=== PATIENT | female | born 1955 | race Hispanic/Latino ===

== ENCOUNTER 2017-02-24 08:37 | Inpatient (IN) | payer OTHER ==
[2017-02-24 08:45] VITALS: BMI 22.1
[2017-02-24] MEDS ORDERED: Sodium Chloride 0.9% 1,000 ML IV ONE (09:09)
[2017-02-24] MEDS ORDERED: Vancomycin 1gm in NS 250ml 1 GM/250 ML BAG IVPB STA (09:22)
[2017-02-24] MEDS ORDERED: Cefepime IV 2 gm in NS 2 GM/100 ML BAG IVPB STA (09:22)
[2017-02-24 09:35] LABS: VENOUS BLOOD GAS BASE EXCESS -3.1 mmol/L (0.0-2.0); VENOUS BLOOD PH 7.36 (7.32-7.43)
[2017-02-24 09:37] LABS: HEMATOCRIT 34.3 % (36.0-48.0); MEAN CELL VOLUME 88.9 fL (80.0-105.0); MEAN CORPUSCULAR HEMOGLOBIN 32.4 pg (25.0-35.0); MEAN CORPUSCULAR HGB CONC 36.4 g/dl (31.0-37.0); MEAN PLATELET VOLUME 9.7 fl (7.0-11.0); PLATELET COUNT 69 10^3/uL (120.0-450.0); RED CELL DISTRIBUTION WIDTH 13.7 % (11.5-14.5)
[2017-02-24 09:38] LABS: ADD MANUAL DIFF? YES; WHITE BLOOD COUNT 0.2 10^3/ul (4.5-11.0)
[2017-02-24 09:41] LABS: INR 1.18 (0.93-1.08)
[2017-02-24 09:50] LABS: ALKALINE PHOSPHATASE 143 U/L (38-133); ALT/SGPT 47 U/L (7-56); AST/SGOT 28 U/L (15-39); BILIRUBIN,TOTAL 1.9 mg/dL (0.2-1.3); BLOOD UREA NITROGEN 16 mg/dL (7-21); CALCIUM 9.4 mg/dL (8.4-10.5); CARBON DIOXIDE 21 mmol/L (21-33); CHLORIDE 99 mmol/L (98-107); GFR AFRICAN-AMERICAN > 60; GLUCOSE,RANDOM 139 mg/dL (70-110); MAGNESIUM 1.9 mg/dL (1.7-2.2); PHOSPHOROUS 3.6 mg/dL (2.5-4.5); POTASSIUM 3.9 mmol/L (3.6-5.0); SODIUM 131 mmol/L (132-148); TOTAL PROTEIN 7.5 g/dL (5.8-8.3)
[2017-02-24] MEDS: Levalbuterol 0.63 MG/3 ML Inhal Soln UD IH SCH ×4 (09:52→21:00)
[2017-02-24] MEDS ORDERED: Sodium Chloride 0.9% 1,000 ML IV STA ×2 (09:56→11:12)
[2017-02-24 10:07] LABS: ATYPICAL LYMPHOCYTE 2 % (0.0-0.0); METAMYELOCYTE 2 %; MYELOCYTE 8 %; NEUTROPHIL 18 % (50.0-70.0)
--- NOTE | 2017-02-24 10:10 | ED PDOC ---
Arrival/HPI - General Chief Complaint: Shortness Of Breath Time Seen by Provider: 02/24/17 08:47 Historian: Patient - History of Present Illness Narrative History of Present Illness (Text): 02/24/17 09:00 A 61 year old female, whose past medical history includes non hodgkin's lymphoma (last chemo in 2006) and hypertension, presents to the emergency department for further evaluation of pneumonia. Patient was diagnosed with right lower lobe pneumonia [place]. She notes coughing associated with shortness of breath and sinus congestion. Patient was give ceftriaxone, hydrocortisone and duoneb treatment in the ship. Patient denies any fever, chest pain, or other complaints at this time. Time/Duration: Other (3 days) Symptom Onset: Sudden Symptom Course: Unchanged Quality: Other Activities at Onset: Rest Context: Other Past Medical History - Provider Review Nursing Documentation Reviewed: Yes - Travel History If Yes, travel location?: [place] - Cardiac Hx Cardiac Disorders: Yes Hx Hypertension: Yes - Pulmonary Hx Respiratory Disorders: No - Neurological Hx Neurological Disorder: No - HEENT Hx HEENT Disorder: No - Renal Hx Renal Disorder: No - Endocrine/Metabolic Hx Endocrine Disorders: No - Hematological/Oncological Hx Blood Disorders: Yes Hx Cancer: Yes (non-hodgkins lymphoma) Hx Chemotherapy: Yes - Integumentary Hx Dermatological Disorder: No - Musculoskeletal/Rheumatological Hx Musculoskeletal Disorders: No - Gastrointestinal Hx Gastrointestinal Disorders: No - Genitourinary/Gynecological Hx Genitourinary Disorders: No - Psychiatric Hx Psychophysiologic Disorder: No Hx Substance Use: No Family/Social History - Physician Review Nursing Documentation Reviewed: Yes Family/Social History: Unknown Family HX Smoking Status: Heavy Smoker > 10 Cigarettes Daily Hx Alcohol Use: Yes Frequency of alcohol use: Socially Hx Substance Use: No Allergies/Home Meds Allergies/Adverse Reactions: Allergies VIKA Inhibitors Allergy (Verified 02/24/17 08:46) COUGH clindamycin Allergy (Verified 02/24/17 08:46) URTICARIA Ptigkst-Lza-Jjl Reductase Inhibitor Adverse Reaction (Verified 02/24/17 08:46) .elevated LFT iv contrast Allergy (Uncoded 02/24/17 08:46) ANAPHYLAXIS Home Medications: Home Meds Medication Instructions Recorded Confirmed Acyclovir [Zovirax] 800 mg PO BID 02/24/17 02/24/17 Cyclobenzaprine [Flexeril] 10 mg PO BID PRN 02/24/17 02/24/17 Estrogen,Con/M-Progest Acet 1 tab PO DAILY 02/24/17 02/24/17 [Prempro 0.625-2.5 mg Tablet] Guaifenesin [Mucinex] 1,200 mg PO DAILY 02/24/17 02/24/17 Ibuprofen [Motrin Tab] 800 mg PO DAILY PRN 02/24/17 02/24/17 L.acidoph,Paracasei, B.lactis 2 cap PO DAILY 02/24/17 02/24/17 [Probiotic] Losartan [Cozaar] 100 mg PO DAILY 02/24/17 02/24/17 Nystatin [Nystatin Oral Susp] 5 ml PO Q4 02/24/17 02/24/17 Ondansetron HCl [Zofran] 8 mg PO Q8 PRN 02/24/17 02/24/17 Promethazine [Phenergan Rectal 12.5 mg PO Q6 PRN 02/24/17 02/24/17 Supp] amLODIPine [Norvasc] 5 mg PO DAILY 02/24/17 02/24/17 Review of Systems - Physician Review All systems were reviewed & negative as marked: Yes - Review of Systems Constitutional: absent: Fevers ENT: Sinus Congestion Respiratory: SOB Cardiovascular: absent: Chest Pain Physical Exam Vital Signs Reviewed: Yes Vital Signs Temp Pulse Resp BP Pulse Ox 02/24/17 12:28 99.9 F H 122 H 22 144/77 02/24/17 11:52 99.9 F H 122 H 22 144/77 95 02/24/17 10:39 98.6 F 122 H 20 149/82 96 02/24/17 09:53 117 H 137/85 02/24/17 09:09 129 H 18 149/82 92 L 02/24/17 08:44 98.8 F 128 H 22 137/85 91 L 02/24/17 08:40 22 95 Temperature: Afebrile Blood Pressure: Normal Pulse: Tachycardic Respiratory Rate: Normal Appearance: Positive for: Well-Appearing, Non-Toxic, Comfortable Pain Distress: None Mental Status: Positive for: Alert and Oriented X 3 - Systems Exam Head: Present: Atraumatic, Normocephalic Pupils: Present: PERRL Extroacular Muscles: Present: EOMI Conjunctiva: Present: Normal Mouth: Present: Dry Neck: Present: Normal Range of Motion Respiratory/Chest: Present: Good Air Exchange, Decreased Breath Sounds (right lower lung ), Rhonchi (right lower lung). No: Respiratory Distress, Accessory Muscle Use Cardiovascular: Present: Normal S1, S2, Tachycardic. No: Murmurs Abdomen: Present: Normal Bowel Sounds. No: Tenderness, Distention, Peritoneal Signs Back: Present: Normal Inspection Upper Extremity: Present: Normal Inspection. No: Cyanosis, Edema Lower Extremity: Present: Normal Inspection. No: Edema Neurological: Present: GCS=15, CN II-XII Intact, Speech Normal Skin: Present: Warm, Dry, Normal Color. No: Rashes Psychiatric: Present: Alert, Oriented x 3, Normal Insight, Normal Concentration Medical Decision Making ED Course and Treatment: 02/24/17 09:00 Impression: A 61 year old female with cough and congestion. Differential Diagnosis include but are not limited to: Pneumonia vs. Neutropenia Plan: -- EKG -- Chest X-ray -- Labs -- Urinalysis -- Reassess and disposition Progress Notes: EKG: Ordered, reviewed, and independently interpreted the EKG. Rate : 128 BPM Rhythm : Sinus tachycardia Interpretation : No ST-segment elevations or depressions, no T-wave inversions, normal intervals. Comparison : No previous EKG for comparison. 02/24/17 09:[address] Matt, who is aware and accepts the patient to his services for Pneumonia. Patient was admitted to telemetry by me. Patient will be placed in an isolation bed. I have discussed the results and plan with the patient, who expresses understanding. Patient given the opportunity to ask question, all questions were answered and there is agreement with the plan to be admitted to the hospital. 02/24/17 09:38 Code Sepsis called. 02/24/17 10:12 Case was discussed with Dr. Alejandro who states to add pulmicort 0.5 q12h x 2 doses and he will follow. Case discussed with Dr. aMnn who agrees with dose of Rocephin 2gm given on ship and added Vancomycin IV. He does recommend that at 5pm we add Zosyn IV. 02/24/17 11:42 Chest X-ray: Creator : Bernardo Bhandari MD COMPARISON: No prior. FINDINGS: LUNGS: Right lower lobe infiltrate. PLEURA: Right pleural effusion. CARDIOVASCULAR: Normal. OSSEOUS STRUCTURES: No significant abnormalities. VISUALIZED UPPER ABDOMEN: Normal. OTHER FINDINGS: None. IMPRESSION: Right lower lobe infiltrate and pleural effusion. - Critical Care Critical Care Minutes: 30 minutes - Lab Interpretations Lab Results: 02/24/17 09:26 02/24/17 09:26 Lab Results 02/24/17 09:26: Chloride 99, Sodium 131 L, Potassium 3.9, Carbon Dioxide 21, Anion Gap 15, BUN 16, Creatinine 1.0, Est GFR ( Amer) > 60, Est GFR (Non- Af Amer) 56, Random Glucose 139 H, Calcium 9.4, Phosphorus 3.6, Magnesium 1.9, Total Bilirubin 1.9 H, AST 28, ALT 47, Alkaline Phosphatase 143 H, Total Protein 7.5, Albumin 3.8, Globulin 3.7, Albumin/Globulin Ratio 1.0 L 02/24/17 09:26: pO2 29 L, VBG pH 7.36, VBG pCO2 39.0 L, VBG HCO3 22.0, VBG Total CO2 23.2, VBG O2 Sat (Calc) 56.6, VBG Base Excess -3.1 L, Chloride 99.0, Glucose 145 H, Lactate 3.8 H, FiO2 21.0 02/24/17 09:26: PT 12.7 H, INR 1.18 H, APTT 38.0 H 02/24/17 09:26: WBC 0.2 L*, RBC 3.86, Hgb 12.5, Hct 34.3 L, MCV 88.9, MCH 32.4, MCHC 36.4, RDW 13.7, Plt Count 69 L, MPV 9.7, Neutrophils % (Manual) 18 L, Lymphocytes % (Manual) 54 H, Atypical Lymphs % 2 H, Monocytes % (Manual) 16 H, Metamyelocytes % 2, Myelocytes % 8 I have reviewed the lab results: Yes - RAD Interpretation Radiology Orders: 02/24/17 09:09 CHEST PORTABLE [RAD] Stat - Medication Orders Current Medication Orders: Acyclovir (Zovirax) 800 mg PO BID AC PRN Reason: Protocol Last Admin: 02/24/17 10:19 Dose: 800 mg Amlodipine Besylate (Norvasc) 5 mg PO DAILY [facility] Last Admin: 02/24/17 09:53 Dose: 5 mg Arformoterol Tartrate (Brovana) 15 mcg IH [id number] [facility] Budesonide (Pulmicort Respules) 0.5 mg IH Q12H [facility] Last Admin: 02/24/17 11:34 Dose: 0.5 mg Sodium Chloride (Sodium Chloride 0.45%) 1,000 mls @ 40 mls/hr IV .Q24H AC Meropenem 1g/NS 100mL IVPB (Meropenem 1g/Ns 100ml Ivpb) 1 gm in 100 mls @ 100 mls/hr IVPB Q8 AC PRN Reason: Protocol Stop: 03/03/17 10:33 Doxycycline Hyclate 100 mg/ (Sodium Chloride) 100 mls @ 100 mls/hr IVPB Q12 AC PRN Reason: Protocol Last Admin: 02/24/17 11:25 Dose: 100 mls/hr Levalbuterol HCl (Xopenex) 0.63 mg IH [id number] [facility] Last Admin: 02/24/17 12:06 Dose: 0.63 mg Losartan Potassium (Cozaar) 100 mg PO DAILY [facility] Last Admin: 02/24/17 09:53 Dose: 100 mg Prempro 0.625-2.5 Mg (Tablet (Home Med)) 1 tab PO DAILY [facility] Last Admin: 02/24/17 10:22 Dose: 1 tab Comments: Pt will take her won at night, usual administration time Promethazine HCl (Phenergan Syrup) 6.25 mg PO Q4H PRN PRN Reason: Cough Discontinued Medications Acetaminophen (Tylenol 325mg Tab) Confirm Administered Dose 650 mg .ROUTE .STK- MED ONE Stop: 02/24/17 12:05 Last Admin: 02/24/17 12:07 Dose: 650 mg Sodium Chloride (Sodium Chloride 0.9%) 1,000 mls @ 2,000 mls/hr IV .Q30M ONE Stop: 02/24/17 09:38 Last Admin: 02/24/17 09:50 Dose: 2,000 mls/hr Cefepime HCl (Maxipime 2gm) 2 gm in 100 mls @ 100 mls/hr IVPB STAT STA PRN Reason: Protocol Stop: 02/24/17 10:21 Last Admin: 02/24/17 12:00 Dose: Vancomycin HCl (Vancomycin 1gm) 1 gm in 250 mls @ 167 mls/hr IVPB STAT STA PRN Reason: Protocol Stop: 02/24/17 10:51 Last Admin: 02/24/17 09:49 Dose: 167 mls/hr Sodium Chloride (Sodium Chloride 0.9%) 1,000 mls @ 999 mls/hr IV .Q1H1M STA Stop: 02/24/17 10:56 Last Admin: 02/24/17 12:14 Dose: 999 mls/hr Sodium Chloride (Sodium Chloride 0.9%) 1,000 mls @ 999 mls/hr IV .Q1H1M STA Stop: 02/24/17 12:12 Levalbuterol HCl (Xopenex) Confirm Administered Dose 1.25 mg .ROUTE .STK-MED ONE Stop: 02/24/17 12:05 Last Admin: 02/24/17 12:07 Dose: - Scribe Statement The provider has reviewed the documentation as recorded by the Ryanibisrael Martin Provider Scribe Attestation: All medical record entries made by the Kane were at my direction and personally dictated by me. I have reviewed the chart and agree that the record accurately reflects my personal performance of the history, physical exam, medical decision making, and the department course for this patient. I have also personally directed, reviewed, and agree with the discharge instructions and disposition. Disposition/Present on Arrival - Present on Arrival Any Indicators Present on Arrival: No History of DVT/PE: No History of Uncontrolled Diabetes: No Urinary Catheter: No History of Decub. Ulcer: No History Surgical Site Infection Following: None - Disposition Have Diagnosis and Disposition been Completed?: Yes Diagnosis: Pneumonia, Neutropenia Disposition Time: 10:12 Patient Plan: Admission Patient Problems: Current Active Problems Problem Status Onset Neutropenia Acute Pneumonia Acute Condition: GUARDED
[2017-02-24] MEDS: PREMPRO PO SCH (10:22)
[2017-02-24 11:22] LABS: URINE BILIRUBIN NEGATIVE (NEGATIVE); URINE BLOOD SMALL (NEGATIVE); URINE GLUCOSE (UA) NEGATIVE (NEGATIVE); URINE KETONE NEGATIVE (NEGATIVE); URINE LEUKOCYTE ESTERASE NEGATIVE Leu/uL (NEGATIVE); URINE PROTEIN 30 mg/dL (<30 mg/dL)
[2017-02-24 11:24] LABS: URINE APPEARANCE CLEAR (CLEAR); URINE COLOR YELLOW (YELLOW)
[2017-02-24 11:34] LABS: URINE BACTERIA SMALL (NEG); URINE RBC 0 - 2 /hpf (0-2); URINE WBC 0 - 2 /hpf (0-6)
[2017-02-24] MEDS: Budesonide 0.5 mg/2 ml Inhal Susp UD IH SCH (11:34)
--- NOTE | 2017-02-24 11:41 | RAD ---
HISTORY: Sepsis Patient COMPARISON: No prior. FINDINGS: LUNGS: Right lower lobe infiltrate. PLEURA: Right pleural effusion. CARDIOVASCULAR: Normal. OSSEOUS STRUCTURES: No significant abnormalities. VISUALIZED UPPER ABDOMEN: Normal. OTHER FINDINGS: None. IMPRESSION: Right lower lobe infiltrate and pleural effusion.
[2017-02-24] MEDS ORDERED: Levalbuterol 1.25 MG/3 ML Inhal Soln UD ONE (12:04)
--- NOTE | 2017-02-24 12:39 | HP ---
I was called down to the Emergency Room by the Emergency Room doctor for evaluation. She came off th e cruise ship, [employer], after being diagnosed with a pneumonia on the cruise ship and she is here v jesus short of breath, coughing, congestion. She is a 61-year-old female who had 3 days of shortness o f breath on the cruise ship, coughing, went to the hospital on the cruise ship. They found her to [place] ve a pneumonia, right lower lobe. There is an old septal infarct. Troponin and D-dimer were negativ e. She was given ceftriaxone 2 grams IV, hydrocortisone 250 IV, nebulizer started and she is very sh ort of breath and not feeling well here. PAST MEDICAL HISTORY: Non-Hodgkin lymphoma. Last chemo was 10/2016. MEDICATIONS: She has numerous. She takes Cozaar for hypertension, estrogen for menopause, Norvasc f or hypertension. She was given cough medicine. She gets ibuprofen for pain, acyclovir for herpes. She is seen on the [facility] in bed 3 in the Emergency Room, not feeling well at all, very short of megan th, coughing. She is on oxygen. I will put her on breathing treatments. I will call in infectious disease for IV antibiotics and pulmonary because she is ALLERGIC TO VIKA INHIBITORS, CLINDAMYCIN, SATI NS, IV CONTRAST, NUMEROUS OTHER MEDICATIONS. REVIEW OF SYSTEMS: No acute vision or hearing changes. There is a sore throat. Neck is supple. Eben wood gets mild headaches from time to time. No chest pain, but there is severe shortness of breath and coughing. She cannot take a deep breath. No nausea, vomiting, constipation, diarrhea. Extremities, she is weak. No edema. She can walk with help, but she is very weak. PHYSICAL EXAMINATION: VITAL SIGNS: She has a 98.8 temp, 128 pulse, 137/85 blood pressure, 22 respiratory rate, 91% O2 sat on room air. She will be given oxygen. We will give her Xopenex and albuterol due to the elevated p ulse rate. HEENT: Head is atraumatic, normocephalic. Extraocular muscles are intact. Pupils equally reactive to light. Mouth is dry. NECK: Supple. HEART: Irregular rate, very tachy at this time. LUNGS: Decreased breath sounds bilaterally, cannot take a deep breath in, very hard to do so. When she does, she coughs. Decreased breath sounds bilaterally, occasional wheeze and rhonchi. ABDOMEN: Soft, nontender, positive bowel sounds. EXTREMITIES: No edema. NEUROLOGIC: Alert and oriented x 3. Cranial nerves II-XII grossly intact. GCS is 15. SKIN: Warm and dry, no ulcers. LYMPHATIC: Thyroid midline. No palpable lymphadenopathy. Laboratory is pending. X-ray is pending. LABORATORIES: From the cruise ship shows a 108 glucose, BUN 19, creatinine 1.1, urate is 1.9, calciu m is 8, albumin 2.7, protein 5.6. Liver enzymes are 40, 129 and 131 alk phos, GGT is 80, amylase is 15. C-reactive protein is 191, it is very high. She is uncomfortable. She has pneumonia from the cruise ship, showing a right lower lobe pneumonia, old septal infarct, history of non-Hodgkin lymphoma. We will be aggressive with her care, IV antibio tics and she will be admitted to the hospital. Miguel Matt DO cc: [id number] TT: 02/24/2017 12:38:51 en
[2017-02-24 12:51] LABS: VENOUS BLOOD GAS BASE EXCESS -5.1 mmol/L (0.0-2.0); VENOUS BLOOD PH 7.35 (7.32-7.43)
[2017-02-24] MEDS: Meropenem 1g/NS 100mL IVPB 1 GM/100 ML PIGGYBACK IVPB SCH ×2 (15:03→21:47)
[2017-02-24] MEDS: Sodium Chloride 0.45% 1,000 ML IV SCH (15:03)
--- NOTE | 2017-02-24 15:24 | CP.PCM.CON ---
History of Present Illness - History of Present Illness History of Present Illness: 61 year old male with PMH of non-Hodgkin Lymphoma (last treatment in 2016) , HTN was brought in to [facility] from a cruise ship because of shortness of breath with cough productive of whitish phlegm. His symptoms started about 3 days ago, and initially it was rhinorrhea, then proceeded to cough. The patient denies fever or chills, no nausea or vomiting, no chest pain , has headache associated with coughing, no dizziness, no abdominal pain, no diarrhea, no dysuria, no hematuria. The cruise that he was on went to [facility]. He denies animal contacts, no insect bites. On the cruise ship, the patient was given Ceftriaxone and hydrocortisone. In the ED, CXR reveals right lower lobe infiltrate and severe neutropenia. Infectious Diseases consult is requested to further evaluate and manage. Review of Systems - Review of Systems All systems: reviewed and no additional remarkable complaints except (as per HPI ) Past Patient History - Past Social History Smoking Status: Heavy Smoker > 10 Cigarettes Daily - CARDIAC Hx Cardiac Disorders: Yes Hx Hypertension: Yes - PULMONARY Hx Respiratory Disorders: No - NEUROLOGICAL Hx Neurological Disorder: No - HEENT Hx HEENT Problems: No - RENAL Hx Chronic Kidney Disease: No - ENDOCRINE/METABOLIC Hx Endocrine Disorders: No - HEMATOLOGICAL/ONCOLOGICAL Hx Blood Disorders: Yes Hx Cancer: Yes (non-hodgkins lymphoma) Hx Chemotherapy: Yes - INTEGUMENTARY Hx Dermatological Problems: No - MUSCULOSKELETAL/RHEUMATOLOGICAL Hx Musculoskeletal Disorders: No - GASTROINTESTINAL Hx Gastrointestinal Disorders: No - GENITOURINARY/GYNECOLOGICAL Hx Genitourinary Disorders: No - PSYCHIATRIC Hx Psychophysiologic Disorder: No Hx Substance Use: No - SURGICAL HISTORY Hx Surgeries: Yes (nasal) Meds Allergies/Adverse Reactions: Allergies Allergy/AdvReac Type Severity Reaction Status Date / Time VIKA Inhibitors Allergy COUGH Verified 02/24/17 08:46 clindamycin Allergy URTICARIA Verified 02/24/17 08:46 Pfanhmz-Nmr-Coc Reductase AdvReac .elevated Verified 02/24/17 08:46 Inhibitor LFT iv contrast Allergy ANAPHYLAXIS Uncoded 02/24/17 08:46 - Medications Medications: Current Medications Acyclovir (Zovirax) 800 mg PO BID AC PRN Reason: Protocol Last Admin: 02/24/17 10:19 Dose: 800 mg Amlodipine Besylate (Norvasc) 5 mg PO DAILY [facility] Last Admin: 02/24/17 09:53 Dose: 5 mg Cefepime HCl (Maxipime 2gm) 2 gm in 100 mls @ 100 mls/hr IVPB Q12 AC PRN Reason: Protocol Stop: 03/01/17 22:01 Vancomycin HCl (Vancomycin 1gm) 1 gm in 250 mls @ 167 mls/hr IVPB STAT STA PRN Reason: Protocol Stop: 02/24/17 10:51 Last Admin: 02/24/17 09:49 Dose: 167 mls/hr Sodium Chloride (Sodium Chloride 0.45%) 1,000 mls @ 40 mls/hr IV .Q24H AC Sodium Chloride (Sodium Chloride 0.9%) 1,000 mls @ 999 mls/hr IV .Q1H1M STA Stop: 02/24/17 10:56 Levalbuterol HCl (Xopenex) 0.63 mg IH [id number] [facility] Last Admin: 02/24/17 09:52 Dose: 0.63 mg Losartan Potassium (Cozaar) 100 mg PO DAILY [facility] Last Admin: 02/24/17 09:53 Dose: 100 mg Prempro 0.625-2.5 Mg (Tablet (Home Med)) 1 tab PO DAILY [facility] Last Admin: 02/24/17 10:22 Dose: 1 tab Promethazine HCl (Phenergan Syrup) 6.25 mg PO Q4H PRN PRN Reason: Cough Physical Exam - Constitutional Appears: Non-toxic, No Acute Distress - Head Exam Head Exam: NORMAL INSPECTION - ENT Exam ENT Exam: Mucous Membranes Moist - Neck Exam Neck exam: Negative for: Lymphadenopathy, Meningismus - Respiratory Exam Respiratory Exam: Decreased Breath Sounds (at the bases) - Cardiovascular Exam Cardiovascular Exam: +S1, +S2 - GI/Abdominal Exam GI & Abdominal Exam: Soft. absent: Tenderness Results - Vital Signs Recent Vital Signs: Last Vital Signs Temp 98.8 F 02/24/17 08:44 Pulse 117 H 02/24/17 09:53 Resp 22 02/24/17 08:44 BP 137/85 02/24/17 09:53 Pulse Ox 91 L 02/24/17 08:44 - Labs Result Diagrams: 02/24/17 09:26 02/24/17 09:26 Assessment & Plan - Assessment and Plan (Free Text) Plan: Assessment Severe sepsis with acute renal failure (GFR 56) and acute neutropenia due to severe right lower lobe community-acquired pneumonia PMH of non-Hodgkin Lymphoma (last treatment in 2016) HTN Plan Patient has been given a dose of IV Vancomycin and we have started the patient on Meropenem and Doxycycline pending blood, sputum cx, urine Legionella Ag, PCT ; reviewed CXR which shows the right lower lobe infiltrate Will monitor clinical response and trend WBC count
[2017-02-24] MEDS: Promethazine 6.25 MG/5 ML CUP PO PRN (16:04)
--- NOTE | 2017-02-24 18:49 | CARD ---
APPROVED REPORT EKG Measurement Heart [id number] <Conclusion> Sinus tachycardia Septal infarct, age undetermined Abnormal ECG
[2017-02-24] MEDS: Arformoterol 15 mcg/2 ml Inh Sol IH SCH (21:00)
[2017-02-24] MEDS ORDERED: Cefepime IV 2 gm in NS 2 GM/100 ML BAG IVPB SCH (22:00)
[2017-02-25] MEDS: Levalbuterol 0.63 MG/3 ML Inhal Soln UD IH SCH ×6 (00:43→19:33)
[2017-02-25] MEDS: Budesonide 0.5 mg/2 ml Inhal Susp UD IH SCH ×3 (00:44→19:35)
[2017-02-25] MEDS: Meropenem 1g/NS 100mL IVPB 1 GM/100 ML PIGGYBACK IVPB SCH ×3 (05:36→21:46)
[2017-02-25 07:36] LABS: HEMATOCRIT 30.4 % (36.0-48.0); MEAN CELL VOLUME 88.6 fL (80.0-105.0); MEAN CORPUSCULAR HEMOGLOBIN 32.4 pg (25.0-35.0); MEAN CORPUSCULAR HGB CONC 36.5 g/dl (31.0-37.0); PLATELET COUNT 58 10^3/uL (120.0-450.0); RED CELL DISTRIBUTION WIDTH 13.7 % (11.5-14.5)
[2017-02-25 07:44] LABS: ALB/GLOB RATIO 0.9 (1.1-1.8); ALKALINE PHOSPHATASE 121 U/L (38-133); ALT/SGPT 39 U/L (7-56); AST/SGOT 17 U/L (15-39); BILIRUBIN,TOTAL 1.3 mg/dL (0.2-1.3); BLOOD UREA NITROGEN 19 mg/dL (7-21); CALCIUM 8.9 mg/dL (8.4-10.5); CARBON DIOXIDE 20 mmol/L (21-33); CHLORIDE 109 mmol/L (95-110); GFR AFRICAN-AMERICAN > 60; GLUCOSE,RANDOM 88 mg/dL (70-110); POTASSIUM 3.3 mmol/L (3.6-5.0); SODIUM 137 mmol/L (132-148); TOTAL PROTEIN 6.6 g/dL (5.8-8.3); URIC ACID 2.9 mg/dL (2.5-6.2)
[2017-02-25 07:53] LABS: ADD MANUAL DIFF? NO; EOS % 1.8 % (1.5-5.0); GRAN % 49.1 % (50.0-68.0); MONO % 29.1 % (1.0-6.0)
[2017-02-25 07:54] LABS: GRAN # 0.27 (1.4-6.5); LYMPH # 0.1 (1.2-3.4); MONO # 0.2 (0.1-0.6)
[2017-02-25 07:55] LABS: WHITE BLOOD COUNT 0.6 10^3/ul (4.5-11.0)
[2017-02-25] MEDS: Potassium Chloride 20 mEq ER Tab PO SCH (08:30)
--- NOTE | 2017-02-25 08:54 | PN ---
DATE: 02/25/2017 I saw the patient in her room. Her partner is in the next bed in reverse isolation. She is breathin g poorly, coughing, cannot take a deep breath, a little weak when she walks. She is on Brovana, Cozaar, doxycycline IV, Merrem IV, Norvasc, Phenergan, Prempro, Pulmicort, IV flui ds, IV Solu-Medrol, Xopenex, and Zovirax. PHYSICAL EXAMINATION: VITAL SIGNS: She has a 99.2 temp, 104 pulse, 131/94 blood pressure, 20 respiratory rate, 94% O2 sat on room air. HEAD: Atraumatic, normocephalic. HEART: Regular rate. LUNGS: Decreased breath sounds, congestion bilaterally, right more than left. ABDOMEN: Soft. EXTREMITIES: No edema. LABORATORY DATA: She has a 0.6 white count; it was low at 0.2. Hemoglobin is 11.1, hematocrit 30.4. Platelets are 58 - quite low. INR is 1.18. She has a 137 sodium. Potassium is low at 3.3. I carmina l replace the potassium. BUN 19, creatinine 1. GFR is greater than 60. Sugar is 88. Calcium is 8. 9. Uric acid is 2.9. Total bili is 1.3. AST is 17. ALT is 39, alk phos 121, total protein 6.6. P rocalcitonin is high at 4.67. Urine is clean. She is being seen by ID, pulmonary. They added steroids IV. I am going to replace the potassium. S he has got a few issues going on. She has pneumonia, sepsis, neutropenia, non-Hodgkin's lymphoma and hypertension. We will keep a very close eye on her. We will check her labs tomorrow. Continue aggressive treatmen t and care. I will replace the potassium and watch her blood pressure. Miguel Matt DO cc: [id number] TT: 02/25/2017 08:54:41 Confirmation # [id number] Dictation # [id number] luis
[2017-02-25] MEDS: Arformoterol 15 mcg/2 ml Inh Sol IH SCH ×2 (09:26→19:33)
[2017-02-25] MEDS: Sodium Chloride 0.45% 1,000 ML IV SCH (09:30)
--- NOTE | 2017-02-25 09:34 | CP.PCM.PN ---
Subjective - Date & Time of Evaluation Date of Evaluation: 02/25/17 Time of Evaluation: 08:30 - Subjective Subjective: Patient is comfortable in bed but still having dyspnea on exertion, had low grade temperature overnight, still with productive cough. Objective - Vital Signs/Intake and Output Vital Signs (last 24 hours): Temp Pulse Resp BP Pulse Ox 99.0 F 99 H 20 122/83 92 L 02/24/17 17:32 02/25/17 05:51 02/24/17 17:32 02/24/17 17:32 02/24/17 17:32 Intake and Output: 02/25/17 02/25/17 06:59 18:59 Intake Total 640 Output Total 400 Balance 240 - Medications Medications: Current Medications Acyclovir (Zovirax) 800 mg PO BID AC PRN Reason: Protocol Last Admin: 02/24/17 18:54 Dose: 800 mg Amlodipine Besylate (Norvasc) 5 mg PO DAILY [facility] Last Admin: 02/24/17 09:53 Dose: 5 mg Arformoterol Tartrate (Brovana) 15 mcg IH [id number] [facility] Last Admin: 02/24/17 21:00 Dose: 15 mcg Budesonide (Pulmicort Respules) 0.5 mg IH Q12H [facility] Last Admin: 02/25/17 00:44 Dose: 0.5 mg Sodium Chloride (Sodium Chloride 0.45%) 1,000 mls @ 40 mls/hr IV .Q24H [facility] Last Admin: 02/24/17 15:03 Dose: 40 mls/hr Meropenem 1g/NS 100mL IVPB (Meropenem 1g/Ns 100ml Ivpb) 1 gm in 100 mls @ 100 mls/hr IVPB Q8 AC PRN Reason: Protocol Stop: 03/03/17 10:33 Last Admin: 02/25/17 05:36 Dose: 100 mls/hr Doxycycline Hyclate 100 mg/ (Sodium Chloride) 100 mls @ 100 mls/hr IVPB Q12 AC PRN Reason: Protocol Last Admin: 02/24/17 23:30 Dose: 100 mls/hr Levalbuterol HCl (Xopenex) 0.63 mg IH [id number] [facility] Last Admin: 02/25/17 04:39 Dose: 0.63 mg Losartan Potassium (Cozaar) 100 mg PO DAILY [facility] Last Admin: 02/24/17 09:53 Dose: 100 mg Methylprednisolone (Solu-Medrol) 30 mg IVP Q12 [facility] Prempro 0.625-2.5 Mg (Tablet (Home Med)) 1 tab PO DAILY [facility] Last Admin: 02/24/17 10:22 Dose: 1 tab Promethazine HCl (Phenergan Syrup) 6.25 mg PO Q4H PRN PRN Reason: Cough Last Admin: 02/24/17 16:04 Dose: 6.25 mg - Labs Labs: PT 12.7 Seconds (9.9-11.8) H 02/24/17 09:26 INR 1.18 (0.93-1.08) H 02/24/17 09:26 APTT 38.0 Seconds (23.7-30.8) H 02/24/17 09:26 - Constitutional Appears: Non-toxic, No Acute Distress - Head Exam Head Exam: NORMAL INSPECTION - ENT Exam ENT Exam: Mucous Membranes Moist - Neck Exam Neck Exam: absent: Lymphadenopathy, Meningismus - Respiratory Exam Respiratory Exam: Decreased Breath Sounds (at the bases) - Cardiovascular Exam Cardiovascular Exam: +S1, +S2 - GI/Abdominal Exam GI & Abdominal Exam: Soft. absent: Tenderness Assessment and Plan - Assessment and Plan (Free Text) Plan: Assessment Severe sepsis with acute renal failure (GFR 56) and acute neutropenia due to severe right lower lobe community-acquired pneumonia PMH of non-Hodgkin Lymphoma (last treatment in 2016) HTN Plan Patient has been given a dose of IV Vancomycin and will continue Meropenem and Doxycycline day 2 pending blood, sputum cx, urine Legionella Ag; PCT is elevated at 4.67; reviewed CXR which shows the right lower lobe infiltrate Will continue to monitor clinical response and trend WBC count
--- NOTE | 2017-02-25 09:54 | CON ---
DATE: 02/25/2017 PULMONARY CONSULTATION REASON FOR PULMONARY CONSULTATION: Pneumonia. REFERRING PHYSICIAN: Miguel Matt DO. HISTORY OF PRESENT ILLNESS: The patient is a 61-year-old female with past medical history significant for non-Hodgkin's lymphoma (last treatment in 10/2016 ), hypertension, questionable chronic obstructive pulmonary disease (positive extensive smoking history), who presents to [facility] - from the cruise ship - with main complaints of dyspnea on exertion, cough, and minimal sputum production for the past 3 days. Apparently, the patient was on the cruise ship when she started to get sick. The above symptoms were preceded by rhinorrhea. The patient denies shortness of breath at rest. Again, she does complain of mild dyspnea on exertion. There is no history of chest pain, coughing up of blood, or chest pain - made worse with deep respirations. The patient did have low-grade temperatures yesterday (99.9). No chills or infectious exposure. No history of night sweats, weight loss, or appetite change prior to the above events. No history of leg or calf pains. No history of syncope or diaphoresis. No history of trauma. REVIEW OF SYSTEMS: No history of nausea, vomiting, or diarrhea. No acute urinary symptoms. No new neurological or musculoskeletal complaints. The rest of the review of systems is negative. ALLERGIES: VIKA INHIBITORS, CLINDAMYCIN, STATINS, AND IV CONTRAST. SOCIAL HISTORY: Positive for extensive tobacco usage. No alcohol. FAMILY HISTORY: No inheritable diseases. HOME MEDICATIONS: Include Phenergan, Zofran, Cozaar, Flexeril, Mucinex, Zovirax , probiotic, Motrin, Norvasc, estrogen. PHYSICAL EXAMINATION: GENERAL: The patient is not short of breath at rest. She is not using accessory muscles for breathing. VITAL SIGNS: Temperature is 99.0, pulse 99, respirations 18, blood pressure 122 /83. Oxygen saturation on nasal cannula is 95% (discussed with nurse). HEENT: Normocephalic, atraumatic. NECK: No JVD. CARDIOVASCULAR: Positive S1, S2. No S3. LUNGS: Crackles appreciated at the right base. Scattered bilateral rhonchi and wheezing are also appreciated. EXTREMITIES: No clubbing, cyanosis, or edema. Calves are nontender to palpation. GASTROINTESTINAL: Abdomen is soft, nontender, nondistended. Bowel sounds are positive. SKIN: No acute rash. NEUROLOGIC: Limited at the present time. PERTINENT LABORATORY DATA: Chest x-ray was done yesterday and reviewed. There is a small patchy infiltrate noted at the right base. CBC: White count 0.2, hemoglobin 12.5, hematocrit 34.3, platelets of 69,000. Complete metabolic profile: Sodium 131, glucose 139, bilirubin 1.9, alkaline phosphatase 143. The rest of the metabolic profile is within normal limits. Procalcitonin is elevated at 4.67. IMPRESSION: 1. Right lower lobe pneumonia. 2. Sepsis syndrome. 3. Acute bronchitis. 4. Non-Hodgkin's lymphoma. 5. Neutropenia. 6. Thrombocytopenia. PLAN: I did discuss the case with the night nurse at length. I have also discussed the case with the patient and her partner at length. The patient presents to [facility] - transferred from the cruise ship - with a 3 -day history of worsening dyspnea on exertion, cough, and minimal sputum production. The patient does state that the above symptoms were preceded by rhinorrhea. The patient also presented to the hospital with low-grade fevers. The fevers seem to be resolving. I did review the chest x-ray as above. There is a small patchy infiltrate noted at the right base. Ford cultures have been ordered and will be analyzed when feasible. The patient has been started on antibiotic therapy - as per infectious disease. Input by Dr. Torres is noted. On physical exam, there is at least moderate bronchospasm noted. There is no significant alveolar arterial gradient. I will continue with the current nebulizer treatments and add low-dose intravenous steroids for now. The patient did receive steroids on the ship. Repeat a.m. labs are pending. Oncology evaluation with Dr. Figureoa has been ordered. The patient does feel better this morning - compared to the past few days. She is clinically improved this morning. Additional pulmonary intervention will be based on the clinical status of the patient. I will discuss the above with Dr. Matt later this morning. Thank you very much for this pulmonary consultation. Rakan Alejandro MD cc: [id number] TT: 02/25/2017 09:53:22 Confirmation # [id number] Dictation # [id number] jn MELI
[2017-02-25] MEDS: PREMPRO PO SCH (10:00)
[2017-02-25] MEDS: MethylPREDNISolone 40 mg Vial IVP SCH ×2 (10:48→21:44)
--- NOTE | 2017-02-25 10:52 | CON ---
DATE: 02/25/2017 This is a 61-year-old woman who has a diagnosis of Waldenstrom's macroglobulinemia since 1998. Cigar ettes positive, alcohol positive. The patient had in 1998 developed a very aggressive form of Sidney samia's macroglobulinemia. She was treated with Rituxan for about a year and then was in remission f or 16 years until 2016. She started developing rapidly progressive Waldenstrom's once more and was t reated with multiple agents. She had Imbruvica, but within 4 days the platelet count dropped to belo w 50 and had to stop that. She was then started on Velcade and Decadron; had no response to it. She was treated finally with Bendeka 2 cycles followed by Bendeka plus Rituxan for 4 more cycles, and th at ended in 10/2016. Her white count has been hovering at around 2.5, platelet count of around 120, and she was able to go on this cruise. The last couple of days, she started developing severe shortn ess of breath, cough. Unclear if she had fever, but she became very short of breath. The oxygen sat uration was only 85%. She was brought to the hospital here where she was put on antibiotics. She sa ys she feels a little bit better on the oxygen, but she really cannot walk to the bathroom. PHYSICAL EXAMINATION: SKIN: No petechiae, no bruises. HEENT: Anicteric. NODES: None palpable in the axillary, cervical or supraclavicular regions. LUNGS: Show diffuse rhonchi, but no wheezing. HEART: S1, S2. ABDOMEN: Shows no liver, no spleen, no tenderness. EXTREMITIES: No edema. CENTRAL NERVOUS SYSTEM: No focal finding. LABORATORY DATA: The white count is 0.2, hemoglobin 12.5 and platelet count 69, with about 16% mono cytes. This may be recovering bone marrow straining. I do not think it is the Waldenstrom's. At this point, she is on antibiotics. What I would recommend is giving the Neupogen daily for the ne xt 3-5 days while we wait to see how she does on the antibiotics. Hitesh Carolina HURLEY cc: [id number] TT: 02/25/2017 10:52:01 Confirmation # [id number] Dictation # [id number] mn
[2017-02-25] MEDS: Promethazine 6.25 MG/5 ML CUP PO PRN (21:57)
[2017-02-26] MEDS: Levalbuterol 0.63 MG/3 ML Inhal Soln UD IH SCH ×7 (01:12→23:45)
[2017-02-26] MEDS: Meropenem 1g/NS 100mL IVPB 1 GM/100 ML PIGGYBACK IVPB SCH ×3 (05:39→21:30)
[2017-02-26] MEDS: Linezolid 600 mg in D5W 300 ml 600 MG/300 ML BAG IVPB SCH ×2 (06:21→21:51)
[2017-02-26] MEDS: Promethazine 6.25 MG/5 ML CUP PO PRN ×2 (06:33→21:53)
[2017-02-26 07:29] LABS: HEMATOCRIT 33.2 % (36.0-48.0); MEAN CELL VOLUME 90.2 fL (80.0-105.0); MEAN CORPUSCULAR HEMOGLOBIN 32.9 pg (25.0-35.0); MEAN CORPUSCULAR HGB CONC 36.4 g/dl (31.0-37.0); PLATELET COUNT 62 10^3/uL (120.0-450.0); RED CELL DISTRIBUTION WIDTH 13.7 % (11.5-14.5)
[2017-02-26 07:36] LABS: WHITE BLOOD COUNT 1.2 10^3/ul (4.5-11.0)
[2017-02-26] MEDS: Arformoterol 15 mcg/2 ml Inh Sol IH SCH ×2 (07:51→19:55)
[2017-02-26] MEDS: Budesonide 0.5 mg/2 ml Inhal Susp UD IH SCH ×4 (07:51→23:00)
--- NOTE | 2017-02-26 07:59 | PN ---
DATE: 02/26/2017 SUBJECTIVE: The patient appears comfortable this morning. She is not short of breath at rest. OBJECTIVE: VITAL SIGNS: Temperature is 98.4, pulse 95, respirations 18/20, blood pressure 150/104. Oxygen saturation on nasal cannula is 94-95%. HEENT: Normocephalic, atraumatic. No JVD. CARDIOVASCULAR: Positive S1, S2. No S3 gallop. LUNGS: Crackles - right base. Less rhonchi. Less wheezing. EXTREMITIES: No clubbing, cyanosis, or edema. Calves are nontender to palpation. GASTROINTESTINAL: Abdomen is soft, nontender, nondistended. Bowel sounds are positive. SKIN: No acute rash. NEUROLOGIC: Limited at the present time. IMPRESSION: 1. Right lower lobe pneumonia. 2. Sepsis syndrome. 3. Acute bronchitis. 4. Non-Hodgkin's lymphoma. 5. Neutropenia. 6. Thrombocytopenia. PLAN: The patient appears comfortable this morning. She is not short of breath at rest. She has less cough. She states to feeling much better overall. On physical exam, her bronchospasm is certainly less. I will continue with the current nebulizer treatments and low-dose intravenous steroids for now. The patient remains on antibiotic therapy - as per infectious disease. Cultures are so far negative. The temperatures have now completely resolved. Repeat a.m. labs are pending. Clinical status of the patient is significantly improved - compared to the initial presentation. I will discuss the above with Dr. Matt. Rakan Alejandro MD cc: [id number] TT: 02/26/2017 07:59:00 Confirmation # [id number] Dictation # [id number] kaila GARRISON
[2017-02-26 08:01] LABS: ADD MANUAL DIFF? NO; GRAN # 0.78 (1.4-6.5); GRAN % 63.9 % (50.0-68.0); LYMPH # 0.1 (1.2-3.4); LYMPH % 8.2 % (22.0-35.0); MONO % 27.9 % (1.0-6.0)
[2017-02-26 08:02] LABS: MONO # 0.3 (0.1-0.6)
[2017-02-26 08:04] LABS: ALB/GLOB RATIO 0.9 (1.1-1.8); ALKALINE PHOSPHATASE 117 U/L (38-133); ALT/SGPT 32 U/L (7-56); AST/SGOT 17 U/L (15-39); BILIRUBIN,TOTAL 1.1 mg/dL (0.2-1.3); BLOOD UREA NITROGEN 21 mg/dL (7-21); CALCIUM 9.3 mg/dL (8.4-10.5); CARBON DIOXIDE 20 mmol/L (21-33); CHLORIDE 110 mmol/L (98-107); GFR AFRICAN-AMERICAN > 60; GLUCOSE,RANDOM 139 mg/dL (70-110); POTASSIUM 3.5 mmol/L (3.6-5.0); SODIUM 138 mmol/L (132-148); TOTAL PROTEIN 6.8 g/dL (5.8-8.3)
--- NOTE | 2017-02-26 10:22 | PN ---
DATE: 02/26/2017 I see her resting comfortably in bed. She has been getting out to chair. She is here with the pneum onia from the cruise ship, sepsis, acute shortness of breath. Otherwise, she is doing much better lo oking at her. She is eating better, stronger and ambulating better in the room. She is in reverse i solation for leukocytosis neutropenia. She has a history of non-Hodgkin's lymphoma. MEDICATIONS: She is on Brovana, Cozaar, doxycycline IV, potassium, Merrem IV, Norvasc, Phenergan, Pr empro, Pulmicort, IV fluids, Solu-Medrol IV, Xopenex, Zovirax and Zyvox IV. PHYSICAL EXAMINATION: VITAL SIGNS: 98.4 temp, 107 pulse, 179/89 blood pressure, 150/104 blood pressure (I will increase th e medicines for her blood pressure, it is saima high), respiratory rate is 20 and the oxygen sat is 94% on 2 liters which was low. HEENT: Head is atraumatic, normocephalic. She looks stronger. She is breathing better. Throat is moist. NECK: Supple. HEART: Regular rate. LUNGS: Decreased breath sounds, especially on the right side. It is loosening up more congestion an d she is coughing it up. ABDOMEN: Soft. EXTREMITIES: No edema. LABORATORY DATA: She has a 1.2 white count (coming up, getting better), 12.1 hemoglobin, 33.2 hemato crit with 62 platelets. She has a 138 sodium, potassium is up to 3.5 (she is on potassium), BUN is 2 1, creatinine 0.8, GFR is greater than 60, sugar is 139, calcium 9.3. Total bili is 1.1, AST is 17, ALT 32, alk phos is 117, total protein 6.8. Legionella was negative. She is being seen by hematology/oncology, infectious disease and pulmonary. She has a diagnosis of Waldenstrom's macroglobulinemia. She had severe sepsis. No acute renal failu re. Acute neutropenia. History of non-Hodgkin's lymphoma. She is on IV antibiotics. I am going to increase the Norvasc to 10 mg a day. Continue with karla knight Check her labs tomorrow. Encouraged getting out of bed to chair. Miguel Matt DO cc: [id number] TT: 02/26/2017 10:21:13 Confirmation # [id number] Dictation # [id number] mn
--- NOTE | 2017-02-26 10:34 | PN ---
DATE: 02/26/2017 Her white count has gone up from 0.2 to 0.6, but more importantly, her neutrophils from 18% are now 4 9%. She also is increasing her monocytes from 16% to 29%. The monocytes are really recovering bone marrow after the stress of her infection. Lymphocyte count is down. Her hemoglobin is stable from 1 2.5 to 11.1 and her platelet count from 69 to 58. She has no petechiae, no bruises, no bleeding. So at this point, she is on Neupogen for the next few days as we await her hopeful clinical improvement in terms of her lung infection and her blood counts. So at this point, no additional changes. Hitesh Figueroa MD cc: [id number] TT: 02/26/2017 07:44:12 Confirmation # [id number] Dictation # [id number] en
[2017-02-26] MEDS: PREMPRO PO SCH (10:51)
[2017-02-26] MEDS: Potassium Chloride 20 mEq ER Tab PO SCH (10:51)
[2017-02-26] MEDS: MethylPREDNISolone 40 mg Vial IVP SCH ×2 (10:52→21:53)
--- NOTE | 2017-02-26 14:47 | CP.PCM.PN ---
Subjective - Date & Time of Evaluation Date of Evaluation: 02/26/17 Time of Evaluation: 10:30 - Subjective Subjective: Patient is breathing better, she is still having cough but slowly getting better , no fevers overnight, no diarrhea, no nausea. Objective - Vital Signs/Intake and Output Vital Signs (last 24 hours): Temp Pulse Resp BP Pulse Ox 98.4 F 98 H 18 135/95 H 95 02/26/17 00:00 02/26/17 00:00 02/26/17 00:00 02/26/17 00:00 02/26/17 00:00 Intake and Output: 02/25/17 02/26/17 18:59 06:59 Intake Total 600 1320 Balance 600 1320 - Medications Medications: Current Medications Acyclovir (Zovirax) 800 mg PO BID AC PRN Reason: Protocol Last Admin: 02/25/17 17:41 Dose: 800 mg Amlodipine Besylate (Norvasc) 5 mg PO DAILY [facility] Last Admin: 02/25/17 10:47 Dose: 5 mg Arformoterol Tartrate (Brovana) 15 mcg IH [id number] [facility] Last Admin: 02/25/17 19:33 Dose: 15 mcg Budesonide (Pulmicort Respules) 0.5 mg IH Q12H AC Last Admin: 02/25/17 19:35 Dose: 0.5 mg Sodium Chloride (Sodium Chloride 0.45%) 1,000 mls @ 40 mls/hr IV .Q24H AC Last Admin: 02/25/17 09:30 Dose: 40 mls/hr Meropenem 1g/NS 100mL IVPB (Meropenem 1g/Ns 100ml Ivpb) 1 gm in 100 mls @ 100 mls/hr IVPB Q8 AC PRN Reason: Protocol Stop: 03/03/17 10:33 Last Admin: 02/26/17 05:39 Dose: 100 mls/hr Doxycycline Hyclate 100 mg/ (Sodium Chloride) 100 mls @ 100 mls/hr IVPB Q12 AC PRN Reason: Protocol Last Admin: 02/25/17 21:46 Dose: 100 mls/hr Linezolid (Zyvox 600mg/300ml D5w) 600 mg in 300 mls @ 200 mls/hr IVPB Q12 AC PRN Reason: Protocol Stop: 03/05/17 06:07 Levalbuterol HCl (Xopenex) 0.63 mg IH [id number] [facility] Last Admin: 02/26/17 01:12 Dose: 0.63 mg Losartan Potassium (Cozaar) 100 mg PO DAILY [facility] Last Admin: 02/25/17 10:47 Dose: 100 mg Methylprednisolone (Solu-Medrol) 30 mg IVP Q12 [facility] Last Admin: 02/25/17 21:44 Dose: 30 mg Prempro 0.625-2.5 Mg (Tablet (Home Med)) 1 tab PO DAILY [facility] Last Admin: 02/25/17 10:00 Dose: 1 tab Potassium Chloride (K-Dur 20 Meq Er Tab) 20 meq PO BRK [facility] Last Admin: 02/25/17 08:30 Dose: 20 meq Promethazine HCl (Phenergan Syrup) 6.25 mg PO Q4H PRN PRN Reason: Cough Last Admin: 02/25/17 21:57 Dose: 6.25 mg - Labs Labs: 02/25/17 07:00 02/25/17 07:00 PT 12.7 Seconds (9.9-11.8) H 02/24/17 09:26 INR 1.18 (0.93-1.08) H 02/24/17 09:26 APTT 38.0 Seconds (23.7-30.8) H 02/24/17 09:26 - Constitutional Appears: Non-toxic, No Acute Distress - Head Exam Head Exam: NORMAL INSPECTION - ENT Exam ENT Exam: Mucous Membranes Moist - Neck Exam Neck Exam: absent: Lymphadenopathy, Meningismus - Respiratory Exam Respiratory Exam: Decreased Breath Sounds - Cardiovascular Exam Cardiovascular Exam: +S1, +S2 - GI/Abdominal Exam GI & Abdominal Exam: Soft. absent: Tenderness Assessment and Plan - Assessment and Plan (Free Text) Plan: Assessment Severe sepsis with acute renal failure (GFR 56) and acute neutropenia due to severe right lower lobe community-acquired pneumonia, clinically improving PMH of non-Hodgkin Lymphoma (last treatment in 2016) HTN Plan will continue Meropenem and Doxycycline day 3 and add Zyvox; blood cx are negative; sputum cx is showing gram positive cocci and gram negative bacilli - will await identification; urine Legionella Ag is negative; PCT is elevated at 4.67; reviewed CXR which shows the right lower lobe infiltrate Will continue to monitor clinical response and trend WBC count discussed with Dr. Alejandro
[2017-02-27] MEDS: Levalbuterol 0.63 MG/3 ML Inhal Soln UD IH SCH ×5 (04:00→21:21)
[2017-02-27] MEDS: Meropenem 1g/NS 100mL IVPB 1 GM/100 ML PIGGYBACK IVPB SCH ×3 (05:42→21:13)
--- NOTE | 2017-02-27 07:40 | PN ---
DATE: 02/27/2017 SUBJECTIVE: The patient appears comfortable this morning. She is not short of breath at rest. OBJECTIVE: VITAL SIGNS: Temperature is 97.3, pulse 80, respirations 18, blood pressure 141 /92. Oxygen saturation on nasal cannula is 98%. HEENT: Normocephalic, atraumatic. No JVD. CARDIOVASCULAR: Positive S1, S2. No S3. LUNGS: Crackles-- right base. Still with minimal rhonchi and wheezing bilaterally. EXTREMITIES: No clubbing, cyanosis, or edema. Calves are nontender to palpation. GASTROINTESTINAL: Abdomen is soft, nontender, nondistended. Bowel sounds are positive. SKIN: No acute rash. NEUROLOGIC: Limited at the present time. IMPRESSION: 1. Right lower lobe pneumonia. 2. Sepsis syndrome. 3. Acute bronchitis. 4. Non-Hodgkin's lymphoma. 5. Neutropenia. 6. Thrombocytopenia. PLAN: The patient appears comfortable this morning. She is not short of breath at rest. She does state to much less cough. She states to feeling much better overall. On physical exam, mild bronchospasm remains. However, the alveolar arterial gradient is now resolving. Oxygen saturation on nasal cannula is now 98%. I will continue with the current nebulizer treatments and current intravenous steroids for now. Hopefully I continue the steroid taper tomorrow. The patient remains on antibiotic therapy - as per infectious disease. Input by Dr. Torres is noted. The fevers have now completely resolved. Cultures remain negative at this point in time. Repeat a.m. labs are pending. Input by Dr. Figueroa - hematology - is also noted. Clinical status of the patient is significantly improved overall. I have advised the patient to be out of bed as much as possible. She agrees. I will discuss the above with Dr. Matt. Rakan Alejandro MD cc: [id number] TT: 02/27/2017 07:39:27 Confirmation # [id number] Dictation # [id number] kaila GARRISON
[2017-02-27] MEDS: Arformoterol 15 mcg/2 ml Inh Sol IH SCH ×2 (08:13→21:20)
[2017-02-27] MEDS: Budesonide 0.5 mg/2 ml Inhal Susp UD IH SCH ×2 (08:13→21:20)
--- NOTE | 2017-02-27 08:13 | PN ---
DATE: 02/27/2017 I saw the patient resting in bed. She is sleeping fairly well. She is still coughing. The coughing is not as bad as when she came in, but she is still coughing. She is also quite weak. She is also quite weak when she talks for too long a period of time and she is not walking that well, although clinically she looks stronger and she is improving. We did not lower the steroids for 2 days and we are not going to lower it again today because when I listen to her she is still tight. I was hoping to discharge her tomorrow, but it is not going to happen. She is still tight, not breathing well, not talking well; at rest she gets short of breath, so hopefully Saturday. MEDICATIONS: She is currently on IV fluids, Brovana, Cozaar, doxycycline, estrogen, Granix, potassium, Merrem, Norvasc, Phenergan DM, Pulmicort, Solu- Medrol continued at 30 b.i.d. because she is still tight, Tylenol, Xopenex, Zovirax and linezolid. LABORATORY DATA: From yesterday: Her white count is up to 1.2. Waiting for this morning's labs to populate. Potassium was 3.5 yesterday. We will check the potassium. We are going to check the white count, platelets (they were only 62 yesterday). She is being seen by infectious disease, pulmonary and hematology/oncology. I discussed at length with her and her about when she might go home. They are really wanting to go home. She is on a cruise ship [place], but right now it looks like Saturday might be the earliest day to go home. Will continue with her Solu-Medrol 30 because she is still tight in the lungs. PHYSICAL EXAMINATION: HEENT: Her head is atraumatic, normocephalic. Throat is moist. NECK: Supple. HEART: Regular rate. LUNGS: Still tight with wheezes bilaterally that changes with cough. Decreased breath sounds. Still not there yet. ABDOMEN: Soft. EXTREMITIES: No edema. She has a sepsis, pneumonia, thrombocytopenia, neutropenia, history of non- Hodgkin lymphoma. We are checking her labs today. Long discussion with her. Discussed with the boom tender. We will check her labs tomorrow. Miguel Matt DO cc: [id number] TT: 02/27/2017 08:12:31 Confirmation # [id number] Dictation # [id number] mn MTDD
[2017-02-27 08:40] LABS: HEMATOCRIT 35.2 % (36.0-48.0); MEAN CELL VOLUME 91.4 fL (80.0-105.0); MEAN CORPUSCULAR HEMOGLOBIN 32.5 pg (25.0-35.0); MEAN CORPUSCULAR HGB CONC 35.5 g/dl (31.0-37.0); MEAN PLATELET VOLUME 10.7 fl (7.0-11.0); PLATELET COUNT 65 10^3/uL (120.0-450.0); RED CELL DISTRIBUTION WIDTH 13.8 % (11.5-14.5); WHITE BLOOD COUNT 3.1 10^3/ul (4.5-11.0)
[2017-02-27 09:20] LABS: ALB/GLOB RATIO 0.9 (1.1-1.8); ALKALINE PHOSPHATASE 118 U/L (38-133); ALT/SGPT 40 U/L (7-56); AST/SGOT 21 U/L (15-39); BILIRUBIN,TOTAL 0.9 mg/dL (0.2-1.3); BLOOD UREA NITROGEN 21 mg/dL (7-21); CALCIUM 9.2 mg/dL (8.4-10.5); CARBON DIOXIDE 22 mmol/L (21-33); CHLORIDE 108 mmol/L (98-107); GFR AFRICAN-AMERICAN > 60; GLUCOSE,RANDOM 102 mg/dL (70-110); POTASSIUM 3.7 mmol/L (3.6-5.0); SODIUM 139 mmol/L (132-148); TOTAL PROTEIN 7.1 g/dL (5.8-8.3)
[2017-02-27] MEDS: MethylPREDNISolone 40 mg Vial IVP SCH ×2 (09:43→21:13)
[2017-02-27] MEDS: Potassium Chloride 20 mEq ER Tab PO SCH (09:44)
[2017-02-27] MEDS: PREMPRO PO SCH (09:45)
[2017-02-27] MEDS: Linezolid 600 mg in D5W 300 ml 600 MG/300 ML BAG IVPB SCH ×2 (11:22→21:52)
[2017-02-27] MEDS: Promethazine 6.25 MG/5 ML CUP PO PRN ×2 (11:31→22:06)
--- NOTE | 2017-02-27 16:26 | CP.PCM.PN ---
Subjective - Date & Time of Evaluation Date of Evaluation: 02/27/17 Time of Evaluation: 10:25 - Subjective Subjective: Comfortable, breathing much better, no fevers overnight, still with dyspnea on exertion but slowly getting better. No diarrhea, no nausea. Objective - Vital Signs/Intake and Output Vital Signs (last 24 hours): Temp Pulse Resp BP Pulse Ox 97.8 F 94 H 21 140/96 H 94 L 02/27/17 06:00 02/27/17 06:00 02/27/17 06:00 02/27/17 06:00 02/27/17 06:00 Intake and Output: 02/27/17 02/27/17 06:59 18:59 Intake Total 660 0 Balance 660 0 - Medications Medications: Current Medications Acyclovir (Zovirax) 800 mg PO BID AC PRN Reason: Protocol Last Admin: 02/26/17 18:00 Dose: 800 mg Amlodipine Besylate (Norvasc) 10 mg PO DAILY [facility] Arformoterol Tartrate (Brovana) 15 mcg IH [id number] [facility] Last Admin: 02/27/17 08:13 Dose: 15 mcg Budesonide (Pulmicort Respules) 0.5 mg IH Q12H AC Last Admin: 02/27/17 08:13 Dose: 0.5 mg Sodium Chloride (Sodium Chloride 0.45%) 1,000 mls @ 40 mls/hr IV .Q24H AC Last Admin: 02/25/17 09:30 Dose: 40 mls/hr Meropenem 1g/NS 100mL IVPB (Meropenem 1g/Ns 100ml Ivpb) 1 gm in 100 mls @ 100 mls/hr IVPB Q8 AC PRN Reason: Protocol Stop: 03/03/17 10:33 Last Admin: 02/27/17 05:42 Dose: 100 mls/hr Doxycycline Hyclate 100 mg/ (Sodium Chloride) 100 mls @ 100 mls/hr IVPB Q12 AC PRN Reason: Protocol Last Admin: 02/27/17 00:16 Dose: 100 mls/hr Linezolid (Zyvox 600mg/300ml D5w) 600 mg in 300 mls @ 200 mls/hr IVPB Q12 AC PRN Reason: Protocol Stop: 03/05/17 06:07 Last Admin: 06/06/17 21:51 Dose: 200 mls/hr Levalbuterol HCl (Xopenex) 0.63 mg IH [id number] [facility] Last Admin: 02/27/17 08:14 Dose: 0.63 mg Losartan Potassium (Cozaar) 100 mg PO DAILY [facility] Last Admin: 02/26/17 10:54 Dose: 100 mg Methylprednisolone (Solu-Medrol) 30 mg IVP Q12 [facility] Last Admin: 02/26/17 21:53 Dose: 30 mg Prempro 0.625-2.5 Mg (Tablet (Home Med)) 1 tab PO DAILY [facility] Last Admin: 02/26/17 10:51 Dose: 1 tab Potassium Chloride (K-Dur 20 Meq Er Tab) 20 meq PO BRK [facility] Last Admin: 02/26/17 10:51 Dose: 20 meq Promethazine HCl (Phenergan Syrup) 6.25 mg PO Q4H PRN PRN Reason: Cough Last Admin: 02/26/17 21:53 Dose: 6.25 mg - Labs Labs: 02/27/17 08:15 02/26/17 05:30 PT 12.7 Seconds (9.9-11.8) H 02/24/17 09:26 INR 1.18 (0.93-1.08) H 02/24/17 09:26 APTT 38.0 Seconds (23.7-30.8) H 02/24/17 09:26 - Constitutional Appears: Non-toxic, No Acute Distress - Head Exam Head Exam: NORMAL INSPECTION - ENT Exam ENT Exam: Mucous Membranes Moist - Neck Exam Neck Exam: absent: Lymphadenopathy, Meningismus - Respiratory Exam Respiratory Exam: Decreased Breath Sounds - Cardiovascular Exam Cardiovascular Exam: +S1, +S2 - GI/Abdominal Exam GI & Abdominal Exam: Soft. absent: Tenderness Assessment and Plan - Assessment and Plan (Free Text) Plan: Assessment Severe sepsis with acute renal failure (now resolved) and acute neutropenia ( also resolved) due to severe right lower lobe community-acquired pneumonia, clinically improving PMH of non-Hodgkin Lymphoma (last treatment in 2016) HTN Plan will continue Meropenem and Doxycycline day 4 and Zyvox; blood cx are negative; sputum cx only showing yeast; urine Legionella Ag is negative; PCT is elevated at 4.67; reviewed CXR which shows the right lower lobe infiltrate Will continue to monitor clinical response and trend WBC count We expect in the next 24 hours to be able to switch to PO antibiotics (i.e. Levofloxacin 750 mg daily for another 3-5 days) discussed with Dr. Alejandro previously
[2017-02-28] MEDS: Levalbuterol 0.63 MG/3 ML Inhal Soln UD IH SCH ×7 (00:33→23:06)
[2017-02-28] MEDS: Meropenem 1g/NS 100mL IVPB 1 GM/100 ML PIGGYBACK IVPB SCH ×3 (05:00→21:08)
--- NOTE | 2017-02-28 07:42 | PN ---
DATE: 02/28/2017 SUBJECTIVE: The patient appears very comfortable this morning. She is not short of breath at rest. PHYSICAL EXAMINATION: VITAL SIGNS: Temperature is 98.0, pulse this morning is approximately 80, respirations 18, blood pressure 131/87. Last oxygen saturation measured on nasal cannula -- 95% (discussed with nurse). HEENT: Normocephalic, atraumatic. No JVD. CARDIOVASCULAR: Positive S1, S2. No S3. LUNGS: Less crackles-- right base. Much less rhonchi. No wheezing this morning. EXTREMITIES: No clubbing, cyanosis, or edema. Calves are nontender to palpation. GASTROINTESTINAL: Abdomen is soft, nontender, nondistended. Bowel sounds are positive. SKIN: No acute rash. NEUROLOGIC: Limited at the present time. IMPRESSION: 1. Right lower lobe pneumonia. 2. Sepsis syndrome. 3. Acute bronchitis. 4. Non-Hodgkin's lymphoma. 5. Neutropenia -- resolving. 6. Thrombocytopenia. 7. Probable chronic obstructive pulmonary disease. PLAN: The patient appears very comfortable this morning. She is not short of breath at rest. She is coughing much less. She states she is feeling much, much better overall. On physical exam, her bronchospasm continues to resolve. I will continue with the current nebulizer treatments and decrease the intravenous steroids this morning. I did ask the nurse to check a pulse oximetry on room air. She called me with a reading of 88%. I then went to the room and checked the pulse oximetry myself. Oxygen saturation on room air is 90 %-91%. However, with exertion, I am quite certain that the pulse oximetry will drop, and thus I will get in touch with social work job titles-- so that the patient can travel with oxygen. The patient did reestablish this morning that she has smoked for over 40 years. I am certain that this plays a part in her alveolar- arterial gradient. I would continue with the antibiotic coverage as per infectious disease. I did discuss the case with Dr. Torres yesterday and Dr. Blankenship this morning. The temperatures have completely resolved. Repeat a.m. labs are pending. Clinical status of the patient is significantly improved -- compared to the initial presentation. The patient is strongly advised to follow up with a pulmonary doctor when she gets back home. I will discuss the above with Dr. Matt. Rakan Alejandro MD cc: [id number] TT: 02/28/2017 07:40:48 Confirmation # [id number] Dictation # [id number] en MTDD
[2017-02-28] MEDS: Potassium Chloride 20 mEq ER Tab PO SCH (08:00)
[2017-02-28] MEDS: Arformoterol 15 mcg/2 ml Inh Sol IH SCH ×2 (08:00→20:45)
[2017-02-28] MEDS: Budesonide 0.5 mg/2 ml Inhal Susp UD IH SCH ×3 (08:01→20:45)
--- NOTE | 2017-02-28 08:50 | PN ---
DATE: 02/28/2017 The patient is doing fairly well; slept fairly well. The problem is when she is off the oxygen her s aturation of oxygen drops to 88%. I spoke to the engineer second assistant. We are trying to get her oxygen. S he is also a bit better though - her strength and breathing - and hopefully tomorrow (Saturday) we can be discharging her back to [place], but she will have to travel with oxygen. MEDICATIONS: She is on Brovana, Cozaar, doxycycline, potassium, Merrem, Norvasc, Phenergan DM, Premp ro, budesonide, IV fluids, Solu-Medrol is now down to 20 mg IV q. 12, Xopenex, Zovirax and Zyvox. PHYSICAL EXAMINATION: VITAL SIGNS: She has a 98 temp, 106 pulse, 131/87 blood pressure, 18 respiratory rate, 92% O2 sat on nasal cannula 2 liters. That is the best blood pressure she has had in a while, since I increased t he Norvasc. HEAD: Atraumatic, normocephalic. Throat is moist. NECK: Supple. HEART: Regular rate. LUNGS: Decreased breath sounds bilaterally. Mild rhonchi, less than the day before. Moving more ai r. ABDOMEN: Soft. EXTREMITIES: No edema. She is smiling and feeling better. LABORATORY DATA: She had a 3.1 white count (best that it has been - she can be out of isolation for neutropenia), hemoglobin 12.5, hematocrit 35.2, platelets are 65 (still a little bit low). She has a 139 sodium, potassium 3.5 (best it has been), BUN is 21, creatinine 0.8, GFR is greater than 60, sug ar is 102, calcium is 9.2. Total bili is 0.9, AST is 21, ALT is 40, alk phos 118, total protein 7.1. She is definitely turning the corner. She is being seen by infectious disease and by pulmonary. The plan is for her to be discharged tomorrow. She is here for severe sepsis, acute neutropenia; community-acquired right lower lobe pneumonia, impr oving; past medical history of non-Hodgkin's lymphoma. Will continue with aggressive treatment and care. Plan is to discharge her home tomorrow. If she go es home tomorrow, she will be on Levaquin 750 for another 5 days. I will write the prescriptions steven braxton. The patient is status post cruise ship with pneumonia, sepsis, neutropenia, thrombocytopenia and hist ory of non-Hodgkin lymphoma, and improving. Miguel Matt DO cc: [id number] TT: 02/28/2017 08:49:16 Confirmation # [id number] Dictation # [id number] mn
[2017-02-28 09:27] LABS: BASO # 0.01 K/mm3 (0.0-2.0); BASO % 0.1 % (0.0-3.0); GRAN # 5.51 (1.4-6.5); GRAN % 78.9 % (50.0-68.0); HEMATOCRIT 36.3 % (36.0-48.0); LYMPH # 0.3 (1.2-3.4); LYMPH % 4.4 % (22.0-35.0); MEAN CELL VOLUME 91.7 fL (80.0-105.0); MEAN CORPUSCULAR HEMOGLOBIN 32.6 pg (25.0-35.0); MEAN CORPUSCULAR HGB CONC 35.5 g/dl (31.0-37.0); MEAN PLATELET VOLUME 10.6 fl (7.0-11.0); MONO # 1.2 (0.1-0.6); MONO % 16.6 % (1.0-6.0); PLATELET COUNT 72 10^3/uL (120.0-450.0); RED CELL DISTRIBUTION WIDTH 13.8 % (11.5-14.5)
[2017-02-28 09:35] LABS: ADD MANUAL DIFF? NO
[2017-02-28 09:43] LABS: ALKALINE PHOSPHATASE 132 U/L (38-133); ALT/SGPT 40 U/L (7-56); AST/SGOT 27 U/L (15-39); BILIRUBIN,TOTAL 0.9 mg/dL (0.2-1.3); BLOOD UREA NITROGEN 20 mg/dL (7-21); CALCIUM 9.3 mg/dL (8.4-10.5); CARBON DIOXIDE 25 mmol/L (21-33); CHLORIDE 106 mmol/L (95-110); GFR AFRICAN-AMERICAN > 60; GLUCOSE,RANDOM 92 mg/dL (70-110); SODIUM 138 mmol/L (132-148); TOTAL PROTEIN 6.8 g/dL (5.8-8.3)
[2017-02-28] MEDS: Linezolid 600 mg in D5W 300 ml 600 MG/300 ML BAG IVPB SCH ×2 (10:00→21:53)
[2017-02-28] MEDS: MethylPREDNISolone 40 mg Vial IVP SCH ×2 (10:00→21:08)
[2017-02-28] MEDS: PREMPRO PO SCH (10:00)
[2017-02-28 11:54] LABS: BAND 4 % (0-2); NEUTROPHIL 43 % (50.0-70.0)
[2017-02-28 11:55] LABS: ATYPICAL LYMPHOCYTE 3 % (0.0-0.0); EOSINOPHIL 1 % (0.0-3.0); METAMYELOCYTE 3 %; MYELOCYTE 2 %
[2017-02-28 11:56] LABS: ANISOCYTOSIS SLIGHT; HYPOCHROMIA SLIGHT; PLATELET ESTIMATE LOW (NORMAL); POIKILOCYTOSIS SLIGHT
[2017-02-28 11:57] LABS: LARGE PLATELETS PRESENT; OVALOCYTES SLIGHT; TEAR DROP CELLS SLIGHT
--- NOTE | 2017-02-28 14:17 | RAD ---
HISTORY: follow up pne COMPARISON: 02/24/2017 FINDINGS: LUNGS: There is an improving infiltrate at the right lung base. There is minimal residual PLEURA: No significant pleural effusion identified, no pneumothorax apparent. CARDIOVASCULAR: Normal. OSSEOUS STRUCTURES: No significant abnormalities. VISUALIZED UPPER ABDOMEN: Normal. OTHER FINDINGS: None. IMPRESSION: There is an improving infiltrate at the right lung base. There is minimal residual
[2017-03-01] MEDS: Levalbuterol 0.63 MG/3 ML Inhal Soln UD IH SCH ×3 (02:37→11:24)
[2017-03-01] MEDS: Meropenem 1g/NS 100mL IVPB 1 GM/100 ML PIGGYBACK IVPB SCH (05:31)
[2017-03-01] MEDS: Budesonide 0.5 mg/2 ml Inhal Susp UD IH SCH (07:44)
[2017-03-01] MEDS: Arformoterol 15 mcg/2 ml Inh Sol IH SCH (07:44)
[2017-03-01 07:48] LABS: HEMATOCRIT 36.9 % (36.0-48.0); MEAN CELL VOLUME 92.3 fL (80.0-105.0); MEAN CORPUSCULAR HEMOGLOBIN 32.3 pg (25.0-35.0); MEAN PLATELET VOLUME 10.3 fl (7.0-11.0); RED CELL DISTRIBUTION WIDTH 13.8 % (11.5-14.5); WHITE BLOOD COUNT 5.9 10^3/ul (4.5-11.0)
--- NOTE | 2017-03-01 07:52 | PN ---
DATE: 02/28/2017 The patient was seen earlier this morning in room 378, bed 2. No fevers and no chills. No nausea or vomiting. PHYSICAL EXAMINATION: VITAL SIGNS: Temperature is 98, blood pressure is 130/70, respiratory rate of 16. HEENT: Unremarkable. NECK: Supple. LUNGS: Have decreased breath sounds. HEART: Normal S1, S2. ABDOMEN: Soft, nontender. LABORATORY EXAMINATION: Reveals a white count of 7, hemoglobin of 12. BUN of 20, creatinine of 0.8. Urinalysis is noted. Serology is noted. Negative urine for legionella antigen. Microbiology reve als yeast in the sputum. The blood cultures are no growth. Urine cultures no growth. The patient is on IV doxycycline and meropenem, which require renewal. The patient is also on Solu-M edrol and the patient is also on Zyvox. ASSESSMENT AND PLAN: A 61-year-old female with severe sepsis, acute renal failure, acute neutropenia also resolved along with the kidney failure, severe right lower community-acquired pneumonia, improv ing, with a history of non-Hodgkin's lymphoma post treatment in October and hypertension, on day #5 of meropenem, doxycycline and Zyvox and will switch to p.o. antibiotics within the next 24 hours. Guicho Blankenship MD cc: [id number] TT: 03/01/2017 07:51:11 Confirmation # [id number] Dictation # [id number] en
[2017-03-01 07:58] LABS: ALKALINE PHOSPHATASE 125 U/L (38-133); ALT/SGPT 46 U/L (7-56); AST/SGOT 22 U/L (15-39); BILIRUBIN,TOTAL 0.8 mg/dL (0.2-1.3); CALCIUM 8.9 mg/dL (8.4-10.5); CARBON DIOXIDE 25 mmol/L (21-33); CHLORIDE 104 mmol/L (95-110); GFR AFRICAN-AMERICAN > 60; GLUCOSE,RANDOM 93 mg/dL (70-110); SODIUM 136 mmol/L (132-148); TOTAL PROTEIN 6.6 g/dL (5.8-8.3)
[2017-03-01 08:17] LABS: BLOOD UREA NITROGEN 18 mg/dL (7-21)
[2017-03-01 08:48] VITALS: BP 143/92; PULSE 86; RESP 19; TEMP 98.3; O2SAT 95
[2017-03-01] MEDS: Potassium Chloride 20 mEq ER Tab PO SCH (09:05)
--- NOTE | 2017-03-01 09:07 | PN ---
DATE: 03/01/2017 PULMONARY NOTE SUBJECTIVE: The patient appears very comfortable this morning. She is not short of breath at rest. PHYSICAL EXAMINATION: VITAL SIGNS: Last temperature recorded is 98.4. Pulse is approximately 88, respiratory rate 18, blood pressure 139/92. Last oxygen saturation recorded on nasal cannula - 93%. HEENT: Normocephalic, atraumatic. No JVD. CARDIOVASCULAR: Positive S1, S2. No S3. LUNGS: Less crackles - right base. Very minimal/much less rhonchi. No wheezing. EXTREMITIES: No clubbing, cyanosis, or edema. Calves are nontender to palpation. GASTROINTESTINAL: Abdomen is soft, nontender, nondistended. Bowel sounds are positive. SKIN: No acute rash. NEUROLOGIC: Limited at the present time. PERTINENT LABORATORY DATA: Chest x-ray was repeated yesterday and reviewed. The chest x-ray is definitely improved-- with a decrease in the right lower lobe infiltrate. IMPRESSION: 1. Right lower lobe pneumonia - resolving. 2. Sepsis syndrome. 3. Acute bronchitis. 4. Non-Hodgkin's lymphoma. 5. Neutropenia - resolved. 6. Thrombocytopenia. 7. Probable chronic obstructive pulmonary disease - positive extensive smoking history. PLAN: The patient appears very comfortable this morning. She is not short of breath at rest. Her cough is much, much less. She does state to feeling significantly better overall. On physical exam, her bronchospasm continues to resolve. I will continue with the current nebulizer treatments and change to oral steroids this morning. I did review the latest chest x-ray. The latest chest x-ray shows definite improvement with a decrease in the right lower lobe infiltrate. The patient remains on antibiotic therapy - as per infectious disease. Input by Dr. Torres is noted. The temperatures have completely resolved. The patient is for probable discharge home later today. She will travel with oxygen. I did discuss the case again with the patient and her partner at length this morning. The patient has done significantly well in the hospital, but needs close followup when she returns to her home. The partner has informed me- this morning- that they already have an appointment with a church secretary where they live ([place]). Repeat a.m. labs are pending. Again, the clinical status of the patient is significantly improved - compared to the initial presentation. We will check with infectious disease - in reference to the discharge antibiotics. The patient will also be on a prednisone taper. Again, she is very well aware that she will be close followup when she gets home. I will discuss the above with Dr. Matt. Rakan Alejandro MD cc: [id number] TT: 03/01/2017 09:06:26 Confirmation # [id number] Dictation # [id number] jn MTDAlo
[2017-03-01] MEDS: PREMPRO PO SCH (10:46)
[2017-03-01] MEDS: Linezolid 600 mg in D5W 300 ml 600 MG/300 ML BAG IVPB SCH (10:48)
--- NOTE | 2017-03-01 12:33 | DS ---
She is going be going home today, back to [place]. She will have oxygen on the airplane. She is doing much better. The chest x-ray shows improving pneumonia. PHYSICAL EXAMINATION: VITAL SIGNS: She has 98.4 temp, 112 down to 98 pulse, 139/92 blood pressure, 20 respiratory rate, 93 % O2 sat on 2 liters nasal cannula. HEENT: Head is atraumatic, normocephalic. Throat is moist. NECK: Supple. HEART: Regular rate. LUNGS: Decreased breath sounds but clearer, less rhonchi and wheeze, changes with cough. She is betsy athing better, looks stronger, walking better and she feels much better. ABDOMEN: Soft. EXTREMITIES: No edema. MEDICATIONS: She is going to go home on her Brovana, Cozaar, potassium, Norvasc, Phenergan, predniso ne 30 for 3 days, 20 for 3 days, 10 for 3 days, her Prempro, Pulmicort, Xopenex. She will be followed up in the next 4 days with the primary care doctor. LABORATORY DATA: She has a 7 white count which is back to normal, 12.9 hemoglobin, 36.3 hematocrit w ith 72 platelets, they are coming up. She has a 138 sodium, potassium is 4, BUN is 20, creatinine 0. 8, GFR is greater than 60, sugar is 92, calcium is 9.3, total bili is 0.9, AST is 27, ALT is 40, shahida line phosphatase 132, total protein 6.8, albumin is 3.4. She did very well. She had a bad pneumonia, it is improving. She is from [place]. She was o n a cruise ship and now she is going back home. Discussed with the at length and her. She unde rstands the plan to follow up with her primary care doctor in 4 days, get a chest x-ray next week, fi walter the medications, no partying, use the oxygen. Miguel Matt DO cc: [id number] TT: 03/01/2017 12:33:11 rn
== END 2017-03-01 13:59 | disposition home or self-care (01) | DRG 871 ==
LOC: ED 08:37 → ERH 10:20 → 3RSO 13:27
PROVIDERS: ADMIT Family Medicine; ATTEND Family Medicine
DX: A41.9 Sepsis, unspecified organism (principal); J18.9 Pneumonia, unspecified organism; J90 Pleural effusion, not elsewhere classified; N17.9 Acute kidney failure, unspecified; C85.90 Non-Hodgkin lymphoma, unspecified, unspecified site; J44.0 Chronic obstructive pulmonary disease with (acute) lower respiratory infection; D70.9 Neutropenia, unspecified; D69.6 Thrombocytopenia, unspecified; R65.20 Severe sepsis without septic shock; C88.0 Waldenstrom macroglobulinemia; I10 Essential (primary) hypertension; J20.9 Acute bronchitis, unspecified; Z79.899 Other long term (current) drug therapy; F17.210 Nicotine dependence, cigarettes, uncomplicated; Z92.21 Personal history of antineoplastic chemotherapy; Z87.892 Personal history of anaphylaxis; Z88.1 Allergy status to other antibiotic agents; Z91.041 Radiographic dye allergy status; Z88.8 Allergy status to other drugs, medicaments and biological substances; R40.2412 Glasgow coma scale score 13-15, at arrival to emergency department; R00.0 Tachycardia, unspecified